=== PATIENT | male | born 1970 | race Caucasian/White ===

== ENCOUNTER → 2017-11-09 | Outpatient (CLI) | payer BC ==
[~2017-11-09] MED LIST: ATOR10TA82 PO
--- NOTE | 2017-11-09 09:18 | DIAGNOSTIC IMAGING REPORT ---
MRI OF THE LUMBAR SPINE WITHOUT IV CONTRAST CLINICAL HISTORY: Chronic low back pain radiating into the lower extremities. COMPARISON STUDY: Abdominal CT dated 08/17/2015. TECHNIQUE: MRI of the lumbar spine is performed utilizing various T1 and T2-weighted sequences in the axial and sagittal planes. IV contrast was not administered for this examination. FINDINGS: Lumbar spine: Vertebral body height and alignment are maintained throughout the lumbar spine. A Schmorl's node is present in the superior endplate of L4. There are tiny anterior osteophytes in the mid to lower lumbar region. The transverse and spinous processes appear intact. There is no evidence of spondylolysis. No destructive bony lesion is identified. Mild endplate edema is seen at L3-L4. Intervertebral discs: There is minimal degenerative disc desiccation seen throughout the lumbar spine. Mild loss of height is noted at L3-L4. The remaining disc spaces are preserved. Spinal cord: The partially imaged spinal cord is normal in morphology and signal intensity. The conus medullaris terminates at the level of L1. The nerve roots of the cauda equina are normal in morphology. L1-L2: Unremarkable. L2-L3: There is minimal posterior disc bulge with annular fissure. The central canal and neural foramina are patent. The disc bulge is eccentric to the left causing subarticular stenosis. This may abut the exiting left L2 nerve root. L3-L4: There is minimal disc bulge. The central canal and neural foramina are patent. L4-L5: There is minimal disc bulge. This causes mild bilateral subarticular stenosis, and may abut the exiting bilateral L4 nerve roots. There is no significant acquired compromise of the central canal. The neural foramina are patent. L5-S1: There is minimal disc bulge eccentric to the left. This causes mild left-sided subarticular stenosis and may abut the exiting left L5 nerve root. The central canal is patent. Facet arthropathy is of no consequence. The neural foramina are clear. Sacrum: The visualized sacrum is normal in morphology and signal intensity. Soft tissues: The paraspinous soft tissues are within normal limits. The iliopsoas musculature is unremarkable. A normal right kidney is not identified. IMPRESSION: 1. There is no disc herniation, central canal stenosis, or significant neural foraminal narrowing seen throughout the lumbar spine. 2. Degenerative disc disease as above. 3. Mild spondylotic change as above. See discussion for detailed level by level analysis. 4. A normal right kidney is not identified. Dictated: 11/09/2017 9:01 AM Transcribed: 11/09/2017 9:18 AM [email or web address] Electronically signed by: Adolfo Merino M.D. 11/09/2017 9:40 AM Dictated Date/Time: 11/09/2017 9:01 AM
== END | disposition home or self-care (01) ==
LOC: C.MRI 08:04
PROVIDERS: ATTEND Nurse Practitioner
DX: M51.36 Other intervertebral disc degeneration, lumbar region (principal); M54.5 Low back pain